=== PATIENT | male | born 1975 | race Caucasian/White ===

== ENCOUNTER 2020-12-05 04:30 | Emergency (ER) | payer SELFPAY ==
[~2020-12-05] VITALS: Ht 160 cm; Wt 60.0 kg
[2020-12-05 04:45] VITALS: BP 130/84
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
--- NOTE | 2020-12-05 06:30 | NUR ---
PT RESTING AND HAS BEEN RESTING PEACEFULLY SINCE ADMISSION. AT THIS TIME MD HAVE EVALUATED PT, AND FIND NO REASON TO KEEP HIM IN THE ER, BUT ALSO HAVE GIVEN FOLLOW UP AND APPOINTMENT INFORMATION FOR [facility], AND PHONE NUMBERS, ADDRESS TO THE FACILITY FOR THE FOLLOW UP. PT V/U OF INSTRUCTIONS, BUT STATES HE DOESN'T WANT TO LEAVE THE E.R. PT IS ADVISED THAT THE MD'S HAVE EVALUATED HIM AT THIS TIME, AND THERE IS NO MORE WE CAN DO HERE FOR HIM. PT HAS STATED HE DID NOT WANT TO TAKE PSYCH MEDS. F/U AND D/C INSTRUCTIONS PROVIDED TO PT AGAIN, AND HE V/U. PT COOPERATIVE AND CALM ON DISCHARGE.
== END 2020-12-05 06:33 | disposition home or self-care (01) ==
LOC: ED 06:00
DX: F15.129 Other stimulant abuse with intoxication, unspecified (principal); F15.159 Other stimulant abuse with stimulant-induced psychotic disorder, unspecified
CPT/HCPCS: 99283